=== PATIENT | male | born 1990 | race Caucasian/White ===

== ENCOUNTER 2019-06-29 22:47 | Emergency (ER) | payer OTHER ==
[~2019-06-29] VITALS: Ht 175.3 cm; Wt 158.3 kg
[2019-06-30] MEDS ORDERED: KETO10TA2 PO (05:22)
== END 2019-06-30 05:37 | disposition home or self-care (01) ==
LOC: ER 22:47
DX: S93.401A Sprain of unspecified ligament of right ankle, initial encounter (principal); X50.9XXA Other and unspecified overexertion or strenuous movements or postures, initial encounter; Y93.89 Activity, other specified; Y92.69 Other specified industrial and construction area as the place of occurrence of the external cause; Y99.8 Other external cause status

== ENCOUNTER 2020-02-29 16:55 | Emergency (ER) | payer OTHER ==
[~2020-02-29] VITALS: Ht 175.3 cm; Wt 154.2 kg
[~2020-02-29 16:55] MED LIST: KETO10TA2 PO
== END 2020-02-29 19:48 | disposition home or self-care (01) ==
LOC: ER 16:55
DX: M54.5 Low back pain (principal)

== ENCOUNTER 2020-03-05 15:30 | Emergency (ER) | payer OTHER ==
[~2020-03-05] VITALS: Ht 175.3 cm; Wt 154.2 kg
[2020-03-05] MEDS ORDERED: KETO10TA2 PO (18:36)
[2020-03-05] MEDS ORDERED: ORPHENADRINE C100 MG PO (18:36)
== END 2020-03-05 18:39 | disposition home or self-care (01) ==
LOC: ER 15:30
DX: M54.5 Low back pain (principal)